=== PATIENT | female | born 1950 | race Caucasian/White ===

== ENCOUNTER 2016-07-02 16:57 | Inpatient (IN) | payer MEDICARE, BC ==
--- NOTE | ~2016-07-02 | HP ---
History And Physical [facility] [address] [place]. [address] NAME: GERMANIA PENA : 46 STATUS : ADM IN [facility]#: [id number] AGE: 66 ADM/REG DATE : 07/02/16 MR#: [id number] REPORT SERV DATE: 07/02/16 DICTATED BY: DENIS MACDONALD DATE: 07/02/16 REPORT STATUS : Draft TRANSCRIBED BY: MODL DATE: 07/02/16 DATE OF ADMISSION: 07/02/2016 CHIEF COMPLAINT: Chest pain. HISTORY OF PRESENT ILLNESS: The patient is a 66-year-old insulin-requiring type 2 diabetic with hypertension, hyperlipidemia, who presented to the [facility] Emergency Department with complaints of chest pain. The patient reports intermittent chest pain for the last five days. The longest episode was of approximately 1-1/2 hours in duration with a maximum intensity of 8/10, reportedly some prolonged chest discomfort last night with multiple episodes of vomiting. The patient developed recurrent chest pain, approximately four hours before presentation to the Catheterization Laboratory, which was intense with substernal with radiation to the bilateral neck and upper arms. This did not resolve, and she ultimately reported to the emergency department. In the emergency department, an EKG was performed, which demonstrated sinus rhythm with Q-waves in the anterior leads and maximum of [address]-segment elevation in leads V1 through V3. The Code STEMI was activated. The patient was transferred emergently to cardiac catheterization laboratory at the main [facility]. On arrival in the catheterization laboratory, the patient reported 3/10 intensity chest pain. The patient reported associated dyspnea and diaphoresis with the previous chest pain episodes. PAST MEDICAL HISTORY: 1. Type 2 diabetes mellitus, insulin requiring. 2. Hypertension. 3. Hyperlipidemia. 4. Diabetic neuropathy. PAST SURGICAL HISTORY: Partial hysterectomy, bilateral carpal tunnel release, and bilateral ulnar tunnel release. ALLERGIES: CODEINE WITH SEVERE NAUSEA AND VOMITING. MEDICATIONS: The patient is unable to name all medications and doses. FAMILY HISTORY: Mother and father with history of myocardial infarctions in older age. A single sibling with history of myocardial infarction in older age with subsequent coronary artery bypass grafting. SOCIAL HISTORY: The patient denies tobacco use for the last seven years. A total of approximately 20-30 years of tobacco use intermittently with various periods of cessation. Smoking less than to one pack of cigarettes per day. Alcohol intake consisting of social alcohol use with a glass of wine, a couple of times per week. The patient denies any prior use of illicit drugs. History And Physical [address] [address] NAME: GERMANIA PENA : [birth year] STATUS : ADM IN PAT#: [id number] AGE: 66 ADM/REG DATE : 07/02/16 MR#: [id number] REPORT SERV DATE: 07/02/16 DICTATED BY: DENIS MACDONALD DATE: 07/02/16 REPORT STATUS : Draft TRANSCRIBED BY: KATY DATE: 07/02/16 REVIEW OF SYSTEMS: Negative for all organ systems except per the history of present illness. PHYSICAL EXAMINATION: VITALS: BP 84/48. PULSE 92. Respirations 16 and unlabored saturating 99% on 2 L nasal cannula. GENERAL: Elderly overweight female in mild distress secondary to ongoing chest pain. HEENT: Normal. NECK: Supple, no JVD or bruit, normal carotid upstroke bilaterally, no thyromegaly. LUNGS: Clear to auscultation and percussion. No wheezes, rales or rhonchi. No use of accessory muscles. CARDIOLOGY: Regular rhythm, normal S1, S2, no thrill, no murmur, rubs or gallops, normal PMI. ABDOMEN: Bowel sounds positive, soft, nontender, and nondistended. No masses or aortic bruits. No hepatosplenomegaly or hepatojugular reflux. EXTREMITIES: No edema. Normal pulses. No clubbing or cyanosis. SKIN: Warm and dry, no significant rash. NEUROLOGIC: Alert and oriented x 3. Appropriate mood. EKG: Sinus rhythm with Q-waves in the anterior leads with ST-segment elevation leads V1 through V3 to a maximum of 3 mm. LABORATORIES: Pending at time of arrival in the Catheterization Laboratory. IMPRESSION: Acute versus subacute anterior wall myocardial infarction-the patient is received emergently in Cardiac Catheterization Laboratory for angiography and intervention. Please see details of procedure under separate report. CSL/MODL Miryam Macdonald M.D. / [id number] CC: Miryam Macdonald M.D.
[2016-07-02] MEDS ORDERED: AMIT75 PO (18:48)
[2016-07-02] MEDS ORDERED: CARDCD360 PO (18:49)
[2016-07-02] MEDS ORDERED: BYETTA10 SC (18:49)
[2016-07-02] MEDS ORDERED: NEUR600 PO (18:50)
[2016-07-02] MEDS ORDERED: TOUJEO SC (18:50)
[2016-07-02] MEDS ORDERED: NEUR400 PO (18:50)
[2016-07-02] MEDS ORDERED: GLUCOPHAGE1000 MG PO ×2 (18:51)
[2016-07-02] MEDS ORDERED: MIRAPEX1.5 MG PO (18:52)
[2016-07-02] MEDS ORDERED: PRILOSEC40 MG PO (18:52)
[2016-07-02] MEDS ORDERED: TOPXL100 PO (18:53)
[2016-07-02] MEDS ORDERED: NOVOLOG SC (18:54)
[2016-07-02] MEDS ORDERED: COZAAR100 MG PO (18:54)
[2016-07-02] MEDS ORDERED: ALLEGRA180 PO (18:55)
[2016-07-02] MEDS ORDERED: MAXIMUM D3 PO (18:55)
[2016-07-02] MEDS ORDERED: SUDAFED PO (18:56)
[2016-07-02] MEDS ORDERED: MYLANTA SUSP PO (18:58)
[2016-07-02] MEDS ORDERED: ADVIL PO (18:58)
[2016-07-02] MEDS ORDERED: CILOXAN OT (19:01)
[2016-07-02 20:43] LABS: CK-MB 78.1 NG/ML; CKMB INDEX (NOT ORD) 7.2
[2016-07-03 03:25] LABS: BASOPHILS 0.2 %; BASOPHILS ABSOLUTE 0.03 10/3/uL (0.0-0.16); EOSINOPHILS 0.4 %; EOSINOPHILS ABSOLUTE 0.05 10/3/uL (0.0-0.53); HEMATOCRIT 42.7 % (36.0-48.0); HEMOGLOBIN 14.8 g/dL (12.0-16.0); IMMATURE GRANULOCYTES 0.5 %; IMMATURE GRANULOCYTES ABSOLUTE 0.06 10/3/uL (0.0-0.11); LYMPHOCYTES 23.3 %; MANUAL DIFF NO %; MEAN CORPUS HGB CONC 34.7 g/dL (32.0-36.0); MEAN CORPUSCULAR HEMOGLOB 30.5 pg (26.0-34.0); MEAN PLATELET VOLUME 11.2 fL (9.2-13.0); MONOCYTES 8.6 %; MONOCYTES ABSOLUTE 1.07 10/3/uL (0.21-1.20); NEUTROPHILS ABSOLUTE 8.31 10/3/uL (2.02-8.40); PLATELET COUNT 125 10/3/uL (150-400); RBC DISTRIBUTION WIDTH 13.3 % (12.0-16.0); RED CELL COUNT 4.85 10/6/uL (4.0-5.6); WHITE BLOOD CELLS 12.4 10/3/uL (4.5-10.5)
[2016-07-03 07:41] LABS: CHOL/HDL RATIO(NOT ORDER) 3.9 (0-5); CHOLESTEROL 148 MG/DL (< 200); HDL CHOLESTEROL 38 MG/DL (> 49); LDL CHOLESTEROL 64 MG/DL (< 130); NON-HDL CHOLESTEROL 110 MG/DL (< 160); SODIUM, SERUM 134 MMOL/L (135-148); TRIGLYCERIDE 234 MG/DL (< 150)
[2016-07-03 08:11] LABS: BUN (BLOOD UREA NITROGEN) 21 MG/DL (6-23); CHLORIDE, SERUM 99 MMOL/L (96-112); CO2 (CARBON DIOXIDE) 22 MMOL/L (24-34); CPK (IF ELEVATED MB BANDS) 1042 U/L (0-200); GFR AFRICAN AMERICAN 76 ML/MIN (>=60); GFR NON AFRICAN AMERICAN 66 ML/MIN (>=60); GLUCOSE, SERUM 230 MG/DL (60-99)
[2016-07-03 08:12] LABS: CK-MB 56.6 NG/ML; CKMB INDEX (NOT ORD) 5.4
[2016-07-03 13:48] LABS: CK-MB 39.5 NG/ML; CKMB INDEX (NOT ORD) 4.6
[2016-07-04] MEDS ORDERED: PROTONIX PO (08:19)
[2016-07-04] MEDS ORDERED: LIPITOR40 PO (08:19)
[2016-07-04] MEDS ORDERED: COZ50 PO (08:20)
[2016-07-04] MEDS ORDERED: COREG6 PO (08:20)
[2016-07-04] MEDS ORDERED: PLAVIX PO (08:20)
[2016-12-03] MEDS ORDERED: TRULICITY1.5 MG/0.5 SQ (00:35)
[2016-12-09] MEDS ORDERED: ASAB PO (11:24)
[2016-12-09] MEDS ORDERED: NEUR100 PO (11:26)
[2016-12-09] MEDS ORDERED: PCET PO (11:33)
== END 2016-07-04 11:28 | disposition home or self-care (01) | DRG 246 ==
LOC: CCU 16:57 → 5NO 07-03 20:11
PROVIDERS: Internal Medicine Cardiovascular Disease
PROC: 4A023N7 Measurement of Cardiac Sampling and Pressure, Left Heart, Percutaneous Approach (ICD-10-PCS; principal; 2016-07-02)
PROC: 027034Z Dilation of Coronary Artery, One Artery with Drug-eluting Intraluminal Device, Percutaneous Approach (ICD-10-PCS; 2016-07-02)
PROC: B2111ZZ Fluoroscopy of Multiple Coronary Arteries using Low Osmolar Contrast (ICD-10-PCS; 2016-07-02)
PROC: B2151ZZ Fluoroscopy of Left Heart using Low Osmolar Contrast (ICD-10-PCS; 2016-07-02)
DX: I21.09 ST elevation (STEMI) myocardial infarction involving other coronary artery of anterior wall (principal); R57.0 Cardiogenic shock; I50.21 Acute systolic (congestive) heart failure; I25.10 Atherosclerotic heart disease of native coronary artery without angina pectoris; E78.5 Hyperlipidemia, unspecified; E11.9 Type 2 diabetes mellitus without complications; I11.0 Hypertensive heart disease with heart failure; Z79.84 Long term (current) use of oral hypoglycemic drugs; Z88.5 Allergy status to narcotic agent
CPT/HCPCS: 71010; 80048; 80061; 82550; 82553; 82962; 83735; 84484; 85025; 85610; 85730; 87641; 93005; 93458; 96374; 99152; 99153; 99285; A9270-GY; C1725; C1769; C1874; C1894; C8929; C9606; J0583; J1200; J1940; J2250; J2370; J3010; Q9957; Q9967